=== PATIENT | female | born 1960 ===

== ENCOUNTER 2023-09-19 00:09 | Emergency (ER) | payer OTHER ==
--- OUTSIDE RECORDS SUMMARY | 2023-09-19 00:13 | XMS REPORT | Continuity of Care Document ---
Author Name Unknown Address [address] [facility] [address] [place], [place] [id number] [place] [address] [facility] Address [address] [facility] [address] [place] [address] Care Team Providers Care Industrial Designer Name Role Phone PCP, PATIENT DOES NOT HAVE A Primary Care Physic thea Unavailable FRANCESCO AMADO Attending Clinician Unavailable SADIE CHAIDEZ Attending Clinician Unavailable MYRA DESOUZA Attending Clinician Unavailable DANIEL PARSONS Attending Clinician Unavailable PEGGY MENDEZ Attending Clinician Unavailable LAVELL LUU Attending Clinician Unavailable LO MORGAN Attending Clinician Unavailable HELEN DUGAN Attending Clinician Unava ilable ELLEN WARD Attending Clinician UnavailLAURA Shea I Attending Clinician Unavailable BARBARA NEWTON Attending Clinician UnavailEDDIE Geronimo Attending Clinician Unav ailable VANE GUAJARDO Attending Clinician Unavailable EUGENIO COSTELLO Attending Clinician Unavailable CARLOS AL Attending Clinician Unavailable GWEN SONG Attending Clinician Unavailable FRANCESCO AMADO Admitting Clinician Unavailable BARBARA NEWTON Admitting Clinician UnavailGWEN Patricio Admitting Clinician Unavailable Payers Payer Name Policy Type Policy Number Effective Date Expirati on Date Source MEDICARE PART A AND B [id number] 2008 00:00:00 MEDICAID [place] [employer] [facility] [id number] 2014 00:00:00 MEDICARE PART A \T\ B [id number] 2008 00:00:00 MEDICAID OF [place] [id number] 2018 00:00:00 Allergies, Adverse Reactions, Alerts Allergy Name Allergy Type Status Severity Reaction(s) Onset Date Inactive Date Treating Clinician Comments Source NO KNOWN ALLERGIE S Drug Class Active [facility] Vital Signs Vital Name Observation Time Observation Value Comments S lukaszce WEIGHT 2020-10-20 08:10:26 54.4 kg Encounters Start Date/Time End Date/Time Encounter Type Admission Type Attending [facility] Facility Care Department Encounter ID Source 2020-04-18 17:29:17 Outpatient FRANCESCO AMADO MICHELLE Surgical Onc [id number] MD [facility] 2020-04-04 16:08:54 Outpatient SADIE CHAIDEZ MDA MDA [id number] MD [facility] 2023-07-24 16:20:23 2023-07-24 23:59:00 Outpatient EL MYRA DESOUZA MDA MDA [id number] MD [facility] 2023-04-22 16:07:31 2023-04-22 23:59:00 Outpatient EL DANIEL PARSONS MDA MDA [id number] MD [facility] 2023-03-27 13:45:00 2023-03-27 23:59:00 Outpatient EL PEGGY MENDEZ MDA MDA [id number] MD [facility] 2023-01-21 14:44:54 2023-01-21 23:59:00 Outpatient EL DANIEL PARSONS MDA MDA [id number] MD [facility] 2022-11-19 06:27:55 2022-11-19 06:27:55 Outpatient PEGGY CONTRERAS MDA MDA [id number] MD [facility] 2022-11-14 11:37:40 2022-11-14 11:59:34 Outpatient EL LAVELL LUU MDA MDA [id number] MD [facility] 2022-11-01 10:21:27 2022-11-01 11:17:21 Outpatient EL LO MORGAN MDA MDA [id number] MD [facility] 2022-11-01 09:59:26 2022-11-01 09:59:26 Outpatient EL LO MORGAN MDA MDA [id number] MD [facility] 2022-10-23 09:59:20 2022-10-23 23:59:00 Outpatient EL DANIEL PARSONS MDA MDA [id number] MD [facility] 2022-07-23 14:57:15 2022-07-23 23:59:00 Outpatient EL DANIEL PARSONS MDA MDA [id number] MD [facility] 2022-05-23 13:00:00 2022-05-23 23:59:00 Outpatient EL LYLY MYRA MDA MDA [id number] MD [facility] 2022-04-11 10:36:57 2022-04-11 10:59:51 Outpatient EL LAVELL LUU MDA MDA [id number] MD [facility] 2022-01-12 23:59:00 2022-01-12 23:59:00 Outpatient EL LYLY MYRA MDA MDA [id number] MD [facility] 2021-11-21 12:56:11 2021-11-21 23:59:00 Outpatient EL MYRA DESOUZA MDA MDA [id number] MD [facility] 2021-09-12 10:08:41 2021-09-12 23:59:00 Outpatient EL LAVELL LUU MDA MDA [id number] MD [facility] 2021-09-12 09:02:50 2021-09-12 09:56:38 Outpatient EL HELEN DUGAN MDA MDA [id number] MD [facility] 2021-09-12 08:12:12 2021-09-12 08:12:12 Outpatient EL LO MORGAN MDA MDA [id number] MD [facility] 2021-09-10 11:39:30 2021-09-10 11:52:45 Outpatient LAVELL DELEON MDA MDA [id number] MD [facility] 2021-06-14 23:59:00 2021-06-14 23:59:00 Outpatient EL MYRA DESOUZA MDA MDA [id number] MD [facility] 2021-05-11 12:45:59 2021-05-11 23:59:00 Outpatient LAVELL DELEON MDA MDA [id number] MD [facility] 2021-05-10 10:29:13 2021-05-10 10:37:48 Outpatient EL ELLEN WARD MDA MDA [id number] MD [facility] 2021-04-25 08:59:41 2021-04-25 08:59:41 Outpatient EL LAURA LAW MDA MDA [id number] MD [facility] 2021-04-11 00:00:00 2021-04-11 00:00:00 Outpatient EL HELEN DUGAN MDA MDA [id number] MD [facility] 2021 07:38:59 2021 23:59:00 Outpatient MYRA PORTER MDA MDA [id number] MD [facility] 2020-12-12 07:40:33 2020-12-12 23:59:00 Outpatient MYRA PORTER MDA MDA [id number] MD [facility] 2020-12-09 10:40:00 2020-12-09 11:35:00 Outpatient EL BARBARA NEWTON MDA Hunter/Hep/Nu t [id number] MD [facility] 2020-12-08 23:59:00 2020-12-08 23:59:00 Outpatient MYRA PORTER MDA MDA [id number] MD [facility] 2020-12-05 23:59:00 2020-12-05 23:59:00 Outpatient MYRA PORTER MDA MDA [id number] MD [facility] 2020-11-03 12:36:59 2020-11-03 12:37:08 Outpatient EDDIE YEE MDA MDA [id number] MD [facility] 2020-10-25 14:04:20 2020-10-25 14:04:20 Outpatient VANE FARR MDA MDA [id number] MD [facility] 2020-10-25 14:04:11 2020-10-25 14:04:11 Outpatient EL HELEN DUGAN MDA MDA [id number] MD [facility] 2020-10-21 05:32:00 2020-10-21 09:40:00 Outpatient EL FRANCESCO AMADO MDA Surgical Onc [id number] MD [facility] 2020-10-21 07:11:29 2020-10-21 07:11:29 Outpatient EL MDA MDA [id number] MD [facility] 2020-10-21 06:51:37 2020-10-21 06:51:37 Outpatient FRANCESCO AMADO MDA MDA [id number] MD [facility] 2020-10-20 11:06:19 2020-10-20 23:59:00 Outpatient EUGENIO NAVAS MDA MDA [id number] MD [facility] 2020-10-20 09:15:00 2020-10-20 11:05:00 Outpatient CARLOS BRICE MDA MDA [id number] MD [facility] 2020-10-20 09:40:17 2020-10-20 10:56:17 Outpatient CARLOS BRICE MDA MDA [id number] MD [facility] 2020-10-20 07:53:24 2020-10-20 09:14:00 Outpatient LUPILLO HELEN DUGAN MDA MDA [id number] MD [facility] 2020-10-20 07:14:53 2020-10-20 08:15:14 Outpatient CARLOS BRICE MDA MDA [id number] MD [facility] 2020-10-20 07:18:02 2020-10-20 07:18:02 Outpatient CARLOS BRICE MDA MDA [id number] MD [facility] 2020-07-08 00:00:00 2020-07-08 00:00:00 Outpatient CARLOS BRICE MDA MDA [id number] MD [facility] 2020-07-08 00:00:00 2020-07-08 00:00:00 Outpatient CARLOS BRICE MDA MDA [id number] MD [facility] 2020-07-08 00:00:00 2020-07-08 00:00:00 Outpatient CARLOS BRICE MDA MDA [id number] MD [facility] 2020-07-08 00:00:00 2020-07-08 00:00:00 Outpatient LUPILLO HELEN DUGAN MDA MDA [id number] MD [facility] 2020-06-23 00:00:00 2020-06-23 00:00:00 Outpatient LUPILLO LAVELL LUU MDA MDA [id number] MD [facility] 2020-06-07 10:00:00 2020-06-07 23:59:00 Outpatient LUPILLO MYRA DESOUZA MDA MDA [id number] MD [facility] 2020-05-12 09:05:32 2020-05-12 23:59:00 Outpatient HELEN BOWLES MDA MDA [id number] MD [facility] 2020-04-05 09:56:36 2020-04-05 09:56:36 Outpatient HELEN BOWLES [facility] [id number] MD [facility] richter 2019-09-15 17:00:45 2019-09-15 18:29:00 Emergency X GWEN SONG [facility] [id number] [facility]
[2023-09-19] MEDS ORDERED: ALBUTEROL 2.5 MG/3 ML NEB SOL ONE (00:40)
[2023-09-19] MEDS ORDERED: ONDANSETRON 4 MG/2 ML VIAL ONE (00:49)
[2023-09-19] MEDS ORDERED: KETOROLAC 30 MG/ML INJ ONE (00:49)
[2023-09-19] MEDS ORDERED: MORPHINE 4 MG/ML SYR ONE (00:49)
[2023-09-19] MEDS ORDERED: AZITHROMYCIN 500 MG INJ IVPB ONE (01:06)
[2023-09-19] MEDS ORDERED: CEFTRIAXONE 1000 MG/VIAL ONE (01:06)
[2023-09-19] MEDS ORDERED: NA CHLORIDE 0.9% 250 ML ONE ×2 (01:06→02:05)
[2023-09-19] MEDS ORDERED: NA CHLORIDE 0.9% 50 ML ONE ×2 (01:06→03:59)
[2023-09-19] MEDS ORDERED: METHYLPREDNISOLONE 125 MG INJ ONE (01:06)
[2023-09-19 01:20] LABS: Protime INR 1.52
[2023-09-19 01:23] LABS: Absolute Lymphocytes (CBC) 0.1 K/uL (0.7-4.9); Hematocrit 35.4 % (36.0-45.0); Lymphocytes % 17.4 % (15.3-44.8); MCV 97.3 fL (80-100); MPV 9.7 fL (7.6-11.3); Platelets 86 thou/uL (152-406); RBC Red Blood Cell Count 3.64 M/uL (3.86-4.86)
[2023-09-19 01:38] LABS: Albumin 2.5 g/dL (3.4-5.0); Bilirubin Direct 0.6 mg/dL (0-0.2); Bilirubin Indirect, Calculated 0.1 mg/dL (0.2-0.8); Bilirubin Total 0.7 mg/dL (0.2-1.0); Magnesium 2.1 mg/dL (1.6-2.4); Potassium 3.3 mEq/L (3.5-5.1); Troponin High Sensitivity 4.9 pg/mL (<58.9)
[2023-09-19 01:47] LABS: SARS-COV-2 RT PCR NEGATIVE (NEGATIVE)
[2023-09-19 01:55] LABS: Arterial Blood Carboxyhemoglob 0.7 % (0-1.5); Blood Gas Oxyhemoglobin 81.2 % (94-97); Blood O2 Saturation 83.4 % (92-98.5)
[2023-09-19] MEDS ORDERED: VANCOMYCIN 1 GM/VIAL ONE (02:05)
[2023-09-19] MEDS ORDERED: CEFAZOLIN SODIUM 2 GM/VIAL ONE (02:06)
[2023-09-19] MEDS ORDERED: NA CHLORIDE 0.9% 100 ML ONE (02:06)
[2023-09-19] MEDS ORDERED: NS KCL 20MEQ 1,000 ML IV ONE (02:06)
[2023-09-19] MEDS ORDERED: LIDOCAINE 1% 20 ML MDV ONE (03:17)
[2023-09-19 03:18] LABS: Blood Morphology Comment NOT SEEN (NOT SEEN); Platelet Estimate DECR; White Blood Cell Scan OK (OK)
[2023-09-19] MEDS ORDERED: MIDAZOLAM HCL IN 0.9 % NACL/PF 100 MG/100 ML BAG IVPB ONE (03:30)
[2023-09-19] MEDS ORDERED: ETOMIDATE 20 MG/10 ML VIAL IV ONE (03:44)
[2023-09-19] MEDS ORDERED: ROCURONIUM 50 MG/5 ML VIAL IV ONE (03:44)
[2023-09-19] MEDS ORDERED: CEFEPIME 1 GM/VIAL ONE (03:59)
--- NOTE | 2023-09-19 03:59 | EDPHYS ---
Physician Documentation [facility] Name: Ness Fleming Age: 63 yrs Sex: Female : 1960 Arrival Date: 09/19/2023 Time: 00:09 Bed 2 Private MD: ED Physician Horacio Castro HPI: 09/19 00:12 This 63 yrs old Female presents to ER via Unassigned with complaints of Chest sp4 pain, shortness of breath. 02:14 63-year-old female with history of oral, head and neck cancer, history of extensive sp4 resection history of glossectomy, presents with several days of shortness of breath, also fever at home. And cough. Patient has history of gastrostomy tube. Patient also reports history of chemoradiation. Patient at this time is remission. She is patient at [facility]. At home patient's family is known to have influenza. . Historical: - Allergies: 01:13 No Known Allergies; km8 - Home Meds: 01:13 Morphine Oral [Active]; Methadone Oral [Active]; levothyroxine oral [Active]; Nexium km8 Oral [Active]; - PMHx: 01:13 oral cancer; km8 - PSHx: 01:13 facial surgery to remove cancer; feeding tube; km8 - Immunization history:: Client reports receiving the 1st dose of the Covid vaccine, Flu vaccine is not up to date. - Social history:: Smoking status: unknown. - Family history:: not pertinent. ROS: 02:14 Constitutional: Positive for fever, positive chills, positive generalized weakness, sp4 positive shortness of breath, positive chest pains 02:14 All other systems are negative, Exam: 02:14 Constitutional: This is a well developed, well nourished patient who is awake, alert, sp4 ill-appearing female, hypoxemic on arrival, gastrostomy tube in place, appearance of extensive facial oral head and neck surgery secondary to prior cancer. 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 History of glossectomy, patient has difficult time speaking but able to communicate basic words Eyes: Pupils equal round and reactive to light, extra-ocular motions intact. Lids and lashes normal. Conjunctiva and sclera are not injected. Cornea within normal limits. Periorbital areas with no swelling, redness, or edema. ENT: Nares patent. No nasal discharge, no septal abnormalities noted. Tympanic membranes are normal and external auditory canals are clear. Mucous membranes moist. Oropharyngeal exam is difficult secondary to radiotherapy and also extensive dissection including glossectomy. Neck: Trachea midline, no thyromegaly or masses palpated, and no cervical lymphadenopathy. Supple, full range of motion without nuchal rigidity, or vertebral point tenderness. Chest/axilla: Normal chest wall appearance and motion. Nontender with no deformity. No lesions are appreciated. Cardiovascular: Regular rate and rhythm with a normal S1 and S2. No gallops, murmurs, or rubs. Normal PMI, no JVD. No pulse deficits. Respiratory: Lungs have equal breath sounds bilaterally, clear to auscultation and percussion. No rales, rhonchi or wheezes noted. No increased work of breathing, no retractions or nasal flaring. Abdomen/GI: Soft, non-tender, with normal bowel sounds. No distension or tympany. No guarding or rebound. No evidence of tenderness throughout. Left upper quadrant gastrostomy tube. Back: No spinal tenderness. No costovertebral tenderness. Skin: Warm, dry with normal turgor. Normal color with no rashes, no lesions, and no evidence of cellulitis. MS/ Extremity: Pulses equal, no cyanosis. Neurovascular intact. Full, normal range of motion. Neuro: Awake and alert, GCS 15, oriented to person, place, time, and situation. Cranial nerves II-XII grossly intact. Motor strength 5/5 in all extremities. Sensory grossly intact. Psych: Awake, alert, with orientation to person, place and time. Behavior, mood, and affect are within normal limits 02:19 ECG was reviewed by the Attending Physician. EKG time 0028, there is sinus rhythm at sp4 the rate of 96, occasional PVCs, right atrial enlargement, positive LVH, prolonged QT otherwise normal Vital Signs: 00:11 BP 124 / 69; Pulse 100; Resp 26; Temp 97.2(A); Pulse Ox 77% on R/A; Weight 54.43 kg km8 (R); Height 5 ft. 6 in. (R); Pain 10/10; 01:00 BP 126 / 65; Pulse 99; Resp 20; km8 01:30 BP 96 / 59; Pulse 96; Resp 19; Pulse Ox 88% on 4 lpm NC; km8 02:00 BP 100 / 57; Pulse 98; Resp 19; Pulse Ox 92% on 30 lpm NC; km8 02:30 BP 109 / 81; Pulse 92; Resp 18; Pulse Ox 92% on 30 lpm NC; km8 03:00 BP 111 / 66; Pulse 96; Resp 19; Pulse Ox 96% on 30 lpm NC; km8 03:30 BP 88 / 59; Pulse 102; Resp 18; Pulse Ox 96% on 30 lpm NC; km8 03:56 BP 101 / 64; Pulse 106; Resp 14; Pulse Ox 98% ; FiO2 100 %; rv 04:15 BP 94 / 58; Pulse 101; Resp 20; Pulse Ox 100% ; FiO2 100 %; rv 04:30 BP 86 / 60; Pulse 93; Resp 20; Pulse Ox 100% ; FiO2 100 %; rv 04:51 BP 118 / 68; Pulse 91; Resp 20; Temp 98; Pulse Ox 100% ; FiO2 100 %; rv 00:11 Body Mass Index 19.37 (54.43 kg, 167.64 cm) km8 00:11 Pain Scale: Adult km8 [place] Coma Score: 00:11 Eye Response: spontaneous(4). Motor Response: obeys commands(6). Verbal Response: km8 oriented(5). Total: 15. 04:51 Eye Response: none(1). Motor Response: none(1). Verbal Response: none(1). Total: 3. rv Procedures: 03:59 Intubation: Ventilated with 100% NRB prior to procedure. O2 saturation prior to sp4 procedure was 90 %. Intubated Montgomery scope assisted intubated, difficult airway management using S2 pediatric Glyde scope blade with 7.0 mm ETT. was successful on first attempt. Ventilated with Ambu bag. ventilator. Tube secured with ETT jones at center of mouth measured 23 cm at lip. Placement verified by CXR, CO2 detector with (+) color change, auscultating bilateral breath sounds, O2 saturation after procedure was 97 %. Patient tolerated well, Patient has a very difficult airway secondary to prior glossectomy and extensive mandibular and upper neck surgery. Intubation and OG tube was accomplished with assistance of glide scope. Central Line: the site was prepped with in sterile fashion, Chlorhexidine, a triple lumen catheter was inserted, in the right internal jugular vein, in 1 attempts. placement was verified, by CXR, by blood return, Ultrasound assisted central line, the site was dressed with Tegaderm, using sterile technique, the patient tolerated the procedure, well, Right internal jugular triple-lumen CVL was placed with ultrasound guidance without complication. MDM: 00:15 Patient medically screened. sp4 02:14 Differential Diagnosis altered mental status, sepsis, flu. Data reviewed: vital signs, sp4 nurses notes, EMS record, lab test result(s), EKG, radiologic studies, plain films. 02:20 ED course: Chest - CLINICAL HISTORY: 63 years Female, CHEST PAIN COMPARISON: None. sp4 FINDINGS: Single portable AP view of the chest. Normal size of the cardiac silhouette. Bilateral airspace opacities in the mid to lower lung dewitt with denser consolidation at the left lung base. Cannot exclude a left pleural effusion. Question of some cortical loss involving the anterolateral left sixth rib. This can be further assessed with CT. No pneumothorax. IMPRESSION: 1. Bilateral airspace opacities in the mid to lower lung dewitt with denser consolidation at the left lung base. Cannot exclude a left pleural effusion. 2. Question of some cortical loss involving the anterolateral left sixth rib. This can be further evaluated with CT.. 04:48 ED course: chest X ray - COMPARISON: September 19, 2023 12:18 AM FINDINGS: Lungs: Hazy sp4 bibasilar opacification. Prominent interstitial markings which may indicate interstitial edema. Peribronchial thickening. Pleural space: Left hemidiaphragm is obscured which can be seen with left pleural effusion, as well as left lower lobe consolidation or atelectasis. No pneumothorax. Heart: Unremarkable. Mediastinum: Unremarkable. Normal mediastinal contour. Bones/joints: No acute findings. Tubes, lines and devices: Right IJ central venous catheter with tip at the cavoatrial junction. Endotracheal tube with tip 4.2 cm above the ute. Nasogastric tube coursing below the diaphragm and overlying the left upper quadrant. IMPRESSION: 1. Hazy bibasilar opacification. 2. Left hemidiaphragm is obscured which can be seen with left pleural effusion, as well as left lower lobe consolidation or atelectasis. 3. Prominent interstitial markings which may indicate interstitial edema. Peribronchial thickening.. 09/19 00:13 Order name: Basic Metabolic Panel; Complete Time: 01:44 sp4 09/19 00:13 Order name: CBC with Diff; Complete Time: 03:55 sp4 09/19 00:13 Order name: LFT's; Complete Time: 01:44 sp4 09/19 00:13 Order name: Magnesium; Complete Time: 01:44 sp4 09/19 00:13 Order name: NT PRO-BNP; Complete Time: 01:44 sp4 09/19 00:13 Order name: PT-INR; Complete Time: 01:44 sp4 09/19 00:13 Order name: Troponin HS; Complete Time: 01:44 4 09/19 00:14 Order name: COVID-19/FLU A+B; Complete Time: 02:07 4 09/19 00:37 Order name: Blood Culture Adult (2) 4 09/19 01:44 Order name: ABG; Complete Time: 02:48 4 09/19 01:47 Order name: CBC Smear Scan; Complete Time: 03:55 EDMS 09/19 03:55 Order name: ABG; Complete Time: 05:14 sp4 09/19 00:13 Order name: XRAY Chest (1 view) 4 09/19 03:55 Order name: Chest Single View XRAY 4 09/19 00:13 Order name: EKG; Complete Time: 00:14 sp4 09/19 00:13 Order name: Cardiac monitoring; Complete Time: 00:22 sp4 09/19 00:13 Order name: EKG - Nurse/Tech; Complete Time: 00:32 sp4 09/19 00:13 Order name: IV Saline Lock; Complete Time: 00:47 sp4 09/19 00:13 Order name: Labs collected and sent; Complete Time: 01:05 sp4 09/19 00:13 Order name: O2 Per Protocol; Complete Time: 00:22 sp4 09/19 00:13 Order name: O2 Sat Monitoring; Complete Time: 00:22 4 09/19 02:58 Order name: Central Line Kit; Complete Time: 03:38 lg3 09/19 02:58 Order name: Hagen; Complete Time: 03:37 3 09/19 02:59 Order name: Intubation Setup; Complete Time: 03:37 sp4 EC:19 Rate is 96 beats/min. Rhythm is regular, Normal Sinus Rhythm with Multifocal PVCs. QRS sp4 [place] is Normal. NH interval is normal. QRS interval is normal. QT interval is prolonged. No Q waves. T waves are Normal. No ST changes noted. Clinical impression: No evidence of ischemia. Interpreted by me. Reviewed by me. Administered Medications: 00:46 Drug: morphine IVP or IV 4 mg IVP once over 4 mins Route: IVP; Infused Over: 4 mins; km8 Site: left forearm; :25 Follow up: Response: No adverse reaction 00:46 Drug: Ondansetron IVP 4 mg IVP once; over 2 minutes Route: IVP; Site: left forearm; km8 :25 Follow up: Response: No adverse reaction 00:46 Drug: Ketorolac IVP 30 mg IVP once Route: IVP; Site: left forearm; km8 :25 Follow up: Response: No adverse reaction 00:47 Drug: Albuterol Inhalation 2.5 mg Inhalation once Route: Inhalation; :25 Follow up: Response: No adverse reaction 8 00:48 CANCELLED (not available ): tamiflususpension 75 mg PO once; Give via Gastrostomy 8 01:05 Drug: MethylPrednisoLONE IVP 125 mg IVP once Route: IVP; Site: left forearm; km8 01:25 Follow up: Response: No adverse reaction 8 01:05 Drug: Rocephin - Rocephin (cefTRIAXone) IVPB 1 grams IVPB once over 30 mins; (mix in 50 km8 mL NS) Route: IVPB; Infused Over: 30 mins; Site: right antecubital; 01:40 Follow up: IV Status: Completed infusion; IV Intake: 50ml km8 01:05 Drug: Zithromax IVPB 500 mg IVPB once over 1 hrs; mix in 250 mL NS Route: IVPB; Infused km8 Over: 1 hrs; Site: left forearm; 02:10 Follow up: IV Status: Completed infusion; IV Intake: 250ml km8 02:09 Drug: ceFAZolin IVPB 2 grams IVPB once over 30 mins; (mix in 100 mL NS) Route: IVPB; km8 Infused Over: 30 mins; Site: left forearm; 02:40 Follow up: IV Status: Completed infusion; IV Intake: 100ml 8 02:09 Drug: vancoMYCIN IVPB 1 grams IVPB once over 2 hrs Route: IVPB; Infused Over: 2 hrs; 8 Site: right hand; 04:54 Follow up: IV Status: Completed infusion; IV Intake: 250ml rv 03:14 Drug: Etomidate IVP 20 mg IVP once {Note: ADMINISTERED BY DR CASTRO.} Route: IVP; rv Site: right antecubital; 03:44 Follow up: Response: No adverse reaction km8 03:15 Drug: Rocuronium IVP 100 mg IVP once {Note: ADMINISTERED BY DR CASTRO.} Route: IVP; rv Site: right antecubital; 03:44 Follow up: Response: No adverse reaction km8 03:37 Drug: Midazolam IVP or IV 0.01 mg/kg/h IV at calculated rate See Administration rv Instructions; (Standard concentration: 100 mg / 100 mL NS); Recommended max rate 0.1 mg/kg/hr; Titrate 0.01 mg/kg/hr as often as every 30 minutes to achieve goal (see titration policy); Goal parameter RASS 0 to -2 {Note: 2MG/HR.} Route: IV; Rate: calculated rate; Site: left forearm; 04:53 Follow up: IV Status: Infusion continued upon transfer rv 03:50 Drug: Cefepime IVPB 2 grams IVPB at 200 ml/hr once over 30 mins; (mix in NS 100 mL) rv Route: IVPB; Rate: 200 ml/hr; Infused Over: 30 mins; Site: right antecubital; 04:54 Follow up: IV Status: Completed infusion; IV Intake: 100ml rv 04:42 Drug: Norepinephrine IV 0.1 mcg/kg/min IV at calculated rate See Administration rv Instructions; (Standard concentration 4 mg / 250 mL D5W); Recommended max rate 3 mcg/kg/min; Titrate 0.05 mcg/kg/min as often as every 5 minutes to achieve goal (see titration policy); Goal parameter MAP greater than 65 mmHg. Route: IV; Rate: calculated rate; Site: right jugular; 04:53 Follow up: IV Status: Infusion continued upon transfer rv 04:54 Drug: NS 0.9% with KCl IV 20 mEq/L 1000 ml IV at 100 ml/hr continuous Route: IV; Rate: rv 100 ml/hr; Site: right antecubital; 04:54 Follow up: IV Status: Infusion continued upon transfer rv Disposition Summary: 09/19/23 03:59 Transfer Ordered Notes: Transfer Location: Other Acute Care Facility sp4 Reason: Higher level of care sp4 Condition: Serious sp4 Problem: new sp4 Symptoms: have improved sp4 Accepting Physician: [facility] attending Intensi(09/19/23 05:15) rv Diagnosis - Acute respiratory failure with hypoxia sp4 - Repeating fever, influenza A, bilateral pneumonia, neutropenia, difficult airway sp4 Discharge Instructions: - Discharge Summary Sheet [id number] Forms: - Medication Reconciliation Form sp4 - SBAR form jr12 Signatures: Dispatcher [employer] EDLenin Narvaez RN RN rv Aimee Herron RN RN lg3 Horacio Castro MD MD sp4 Mamie Zuniga RN RN km8 Corrections: (The following items were deleted from the chart) 00:48 00:15 Tamiflu PO Suspension 75 mg PO once; Give via Gastrostomy ordered. sp4 km8 05:15 03:59 [facility] attending Intensi sp4 rv
--- NOTE | 2023-09-19 03:59 | ER ---
Nurse's Notes [facility] Name: Ness Fleming Age: 63 yrs Sex: Female : 1960 Arrival Date: 09/19/2023 Time: 00:09 Bed 2 Private MD: Diagnosis: Acute respiratory failure with hypoxia;Repeating fever, influenza A, bilateral pneumonia, neutropenia, difficult airway Presentation: 09/19 00:11 Chief complaint: EMS states: CP and SOB starting yesterday and BURKETT just 10 mins DENT REMOVER; km8 pt's family has flu. Coronavirus screen: Client denies travel out of the [place] in the last 14 days. Ebola Screen: No symptoms or risks identified at this time. Initial Sepsis Screen: Does the patient meet any 2 criteria? RR > 20 per min. HR > 90 bpm. Yes Does the patient have a suspected source of infection? No. Patient's initial sepsis screen is negative. Risk Assessment: Do you want to hurt yourself or someone else? Patient reports no desire to harm self or others. Onset of symptoms was September 16, 2023. 00:11 Method Of Arrival: EMS: [facility] km8 00:11 Acuity: ROBERTO 2 km8 Triage Assessment: 00:11 General: Appears in no apparent distress. uncomfortable, Behavior is calm, cooperative, km8 appropriate for age. Pain: Complains of pain in chest and head Pain currently is 10 out of 10 on a pain scale. EENT: no lower jaw and partial tongue. Neuro: Level of Consciousness is awake, alert, obeys commands, Oriented to person, place, time, situation. Cardiovascular: Reports chest pain, shortness of breath, Capillary refill < 3 seconds Patient's skin is warm and dry. Respiratory: Reports shortness of breath Airway is patent Respiratory effort is even, unlabored, Respiratory pattern is regular, symmetrical. GI: Abdomen is flat, PEG tube in place, clamped. Site clean. : No signs and/or symptoms were reported regarding the genitourinary system. Derm: No signs and/or symptoms reported regarding the dermatologic system. Skin is intact, Skin is dry, Skin is normal, Skin temperature is warm. Musculoskeletal: No signs and/or symptoms reported regarding the musculoskeletal system. Range of motion: intact in all extremities. Historical: - Allergies: :13 No Known Allergies; km8 - Home Meds: 01:13 Morphine Oral [Active]; Methadone Oral [Active]; levothyroxine oral [Active]; Nexium km8 Oral [Active]; - PMHx: 01:13 oral cancer; km8 - PSHx: 01:13 facial surgery to remove cancer; feeding tube; km8 - Immunization history:: Client reports receiving the 1st dose of the Covid vaccine, Flu vaccine is not up to date. - Social history:: Smoking status: unknown. - Family history:: not pertinent. Screenin:11 [facility] ED Fall Risk Assessment (Adult) History of falling in the last 3 months, km8 including since admission No falls in past 3 months (0 pts) Confusion or Disorientation No (0 pts) Intoxicated or Sedated No (0 pts) Impaired Gait No (0 pts) Mobility Assist Device Used No (0 pt) Altered Elimination No (0 pt) Score/Fall Risk Level 0 - 2 = Low Risk Oriented to surroundings, Maintained a safe environment, Educated pt \T\ family on fall prevention, incl call for assistance when getting out of bed, Assessed \T\ reinforced patient's understanding of fall precautions. Abuse screen: Denies threats or abuse. Denies injuries from another. Nutritional screening: No deficits noted. Tuberculosis screening: No symptoms or risk factors identified. Assessment: 00:11 Reassessment: see triage notes/assessment. [facility] 01:00 Reassessment: Patient appears in no apparent distress at this time. No changes from [facility] previously documented assessment. Patient and/or family updated on plan of care and expected duration. Pain level reassessed. Patient is alert, oriented x 3, equal unlabored respirations, skin warm/dry/pink. 02:11 Reassessment: RT at bedside to help with O2 therapy; pt placed on high flow O2 via n/c km8 at 30L. 03:00 Reassessment: Patient appears in no apparent distress at this time. Patient and/or [facility] family updated on plan of care and expected duration. Pain level reassessed. Patient is alert, oriented x 3, equal unlabored respirations, skin warm/dry/pink. Respiratory: Airway is patent Respiratory effort is even, unlabored, Respiratory pattern is regular, symmetrical. Vital Signs: 00:11 BP 124 / 69; Pulse 100; Resp 26; Temp 97.2(A); Pulse Ox 77% on R/A; Weight 54.43 kg km8 (R); Height 5 ft. 6 in. (R); Pain 10/10; 01:00 BP 126 / 65; Pulse 99; Resp 20; km8 01:30 BP 96 / 59; Pulse 96; Resp 19; Pulse Ox 88% on 4 lpm NC; km8 02:00 BP 100 / 57; Pulse 98; Resp 19; Pulse Ox 92% on 30 lpm NC; km8 02:30 BP 109 / 81; Pulse 92; Resp 18; Pulse Ox 92% on 30 lpm NC; km8 03:00 BP 111 / 66; Pulse 96; Resp 19; Pulse Ox 96% on 30 lpm NC; km8 03:30 BP 88 / 59; Pulse 102; Resp 18; Pulse Ox 96% on 30 lpm NC; km8 03:56 BP 101 / 64; Pulse 106; Resp 14; Pulse Ox 98% ; FiO2 100 %; rv 04:15 BP 94 / 58; Pulse 101; Resp 20; Pulse Ox 100% ; FiO2 100 %; rv 04:30 BP 86 / 60; Pulse 93; Resp 20; Pulse Ox 100% ; FiO2 100 %; rv 04:51 BP 118 / 68; Pulse 91; Resp 20; Temp 98; Pulse Ox 100% ; FiO2 100 %; rv 00:11 Body Mass Index 19.37 (54.43 kg, 167.64 cm) km8 00:11 Pain Scale: Adult km8 [place] Coma Score: 00:11 Eye Response: spontaneous(4). Motor Response: obeys commands(6). Verbal Response: km8 oriented(5). Total: 15. 04:51 Eye Response: none(1). Motor Response: none(1). Verbal Response: none(1). Total: 3. rv ED Course: 00:11 Patient arrived in ED. km8 00:11 No provider procedures requiring assistance completed. km8 00:11 Arm band placed on right wrist. km8 00:11 Patient has correct armband on for positive identification. Placed in gown. Bed in low km8 position. Call light in reach. Side rails up X2. Client placed on continuous cardiac and pulse oximetry monitoring. NIBP monitoring applied. Door closed. Lights dimmed. Warm blanket given. 00:12 Horacio Castro MD is Attending Physician. sp4 00:15 Triage completed. km8 00:20 Oxygen administration via nasal cannula \T\ 4L/min. km8 00:25 XRAY Chest (1 view) In Process Unspecified. EDMS 00:47 Inserted saline lock: 20 gauge in left forearm, using aseptic technique. km8 02:19 initiated transfer with [facility] transfer center, spoke with Dayanna. jr12 04:10 Chest Single View XRAY In Process Unspecified. EDMS 04:53 Patient transferred, IV remains in place. rv Administered Medications: 00:46 Drug: morphine IVP or IV 4 mg IVP once over 4 mins Route: IVP; Infused Over: 4 mins; km8 Site: left forearm; 01:25 Follow up: Response: No adverse reaction km8 00:46 Drug: Ondansetron IVP 4 mg IVP once; over 2 minutes Route: IVP; Site: left forearm; km8 01:25 Follow up: Response: No adverse reaction km8 00:46 Drug: Ketorolac IVP 30 mg IVP once Route: IVP; Site: left forearm; km8 01:25 Follow up: Response: No adverse reaction km8 00:47 Drug: Albuterol Inhalation 2.5 mg Inhalation once Route: Inhalation; km8 01:25 Follow up: Response: No adverse reaction km8 00:48 CANCELLED (not available ): tamiflususpension 75 mg PO once; Give via Gastrostomy km8 01:05 Drug: MethylPrednisoLONE IVP 125 mg IVP once Route: IVP; Site: left forearm; km8 01:25 Follow up: Response: No adverse reaction km8 01:05 Drug: Rocephin - Rocephin (cefTRIAXone) IVPB 1 grams IVPB once over 30 mins; (mix in 50 km8 mL NS) Route: IVPB; Infused Over: 30 mins; Site: right antecubital; 01:40 Follow up: IV Status: Completed infusion; IV Intake: 50ml km8 01:05 Drug: Zithromax IVPB 500 mg IVPB once over 1 hrs; mix in 250 mL NS Route: IVPB; Infused km8 Over: 1 hrs; Site: left forearm; 02:10 Follow up: IV Status: Completed infusion; IV Intake: 250ml km8 02:09 Drug: ceFAZolin IVPB 2 grams IVPB once over 30 mins; (mix in 100 mL NS) Route: IVPB; km8 Infused Over: 30 mins; Site: left forearm; 02:40 Follow up: IV Status: Completed infusion; IV Intake: 100ml km8 02:09 Drug: vancoMYCIN IVPB 1 grams IVPB once over 2 hrs Route: IVPB; Infused Over: 2 hrs; km8 Site: right hand; 04:54 Follow up: IV Status: Completed infusion; IV Intake: 250ml rv 03:14 Drug: Etomidate IVP 20 mg IVP once {Note: ADMINISTERED BY DR CASTRO.} Route: IVP; rv Site: right antecubital; 03:44 Follow up: Response: No adverse reaction 8 03:15 Drug: Rocuronium IVP 100 mg IVP once {Note: ADMINISTERED BY DR CASTRO.} Route: IVP; rv Site: right antecubital; 03:44 Follow up: Response: No adverse reaction [facility] 03:37 Drug: Midazolam IVP or IV 0.01 mg/kg/h IV at calculated rate See Administration rv Instructions; (Standard concentration: 100 mg / 100 mL NS); Recommended max rate 0.1 mg/kg/hr; Titrate 0.01 mg/kg/hr as often as every 30 minutes to achieve goal (see titration policy); Goal parameter RASS 0 to -2 {Note: 2MG/HR.} Route: IV; Rate: calculated rate; Site: left forearm; 04:53 Follow up: IV Status: Infusion continued upon transfer rv 03:50 Drug: Cefepime IVPB 2 grams IVPB at 200 ml/hr once over 30 mins; (mix in NS 100 mL) rv Route: IVPB; Rate: 200 ml/hr; Infused Over: 30 mins; Site: right antecubital; 04:54 Follow up: IV Status: Completed infusion; IV Intake: 100ml rv 04:42 Drug: Norepinephrine IV 0.1 mcg/kg/min IV at calculated rate See Administration rv Instructions; (Standard concentration 4 mg / 250 mL D5W); Recommended max rate 3 mcg/kg/min; Titrate 0.05 mcg/kg/min as often as every 5 minutes to achieve goal (see titration policy); Goal parameter MAP greater than 65 mmHg. Route: IV; Rate: calculated rate; Site: right jugular; 04:53 Follow up: IV Status: Infusion continued upon transfer rv 04:54 Drug: NS 0.9% with KCl IV 20 mEq/L 1000 ml IV at 100 ml/hr continuous Route: IV; Rate: rv 100 ml/hr; Site: right antecubital; 04:54 Follow up: IV Status: Infusion continued upon transfer rv Medication: 00:11 VIS not applicable for this client. km8 Intake: 01:40 IV: 50ml; Total: 50ml. km8 02:10 IV: 250ml; Total: 300ml. km8 02:40 IV: 100ml; Total: 400ml. km8 04:54 IV: 100ml; Total: 500ml. rv 04:54 IV: 250ml; Total: 750ml. rv Outcome: 03:59 ER care complete, transfer ordered by MD. yeager 04:53 Transferred by ground EMS to [facility], Transfer form completed. rv X-rays sent w/ patient. 04:53 Condition: good 04:53 Instructed on the need for transfer, 05:15 Patient left the ED. rv Signatures: Dispatcher [employer] EDMS Lenin Centeno RN RN Horacio Huff MD MD sp4 Yany Wniter [facility] Mamie Zuniga, BRIAN RN km8 Corrections: (The following items were deleted from the chart) 03:42 02:46 BP 146 / 87; Pulse 69bpm; Resp 22bpm; Pulse Ox 96% 30 lpm Nasal Cannula; [facility] km8 03:42 02:45 BP 136 / 78; Pulse 75bpm; Resp 18bpm; Pulse Ox 96% 30 lpm Nasal Cannula; 8 km8
[2023-09-19 04:14] LABS: Arterial Blood Carboxyhemoglob 0.4 % (0-1.5); Blood Gas Oxyhemoglobin 94.8 % (94-97); Blood O2 Saturation 96.5 % (92-98.5)
[2023-09-19] MEDS ORDERED: NOREPINEPHRINE BITARTRATE/D5W 4 MG/250 ML BAG IV ONE (04:53)
[2023-09-19 08:13] VITALS: BP 118/68; TEMP 98; O2SAT 100
--- NOTE | 2023-09-19 10:44 | RAD REPORT ---
EXAM DESCRIPTION: RAD - Chest Single View - 09/19/2023 4:09 am CLINICAL HISTORY: The patient is 63 years old and is Female; after intubation and CVL TECHNIQUE: Frontal view of the chest. COMPARISON: September 19, 2023 12:18 AM FINDINGS: Lungs: Hazy bibasilar opacification. Prominent interstitial markings which may indicate interstitial edema. Peribronchial thickeni ng. Pleural space: Left hemidiaphragm is obscured which can be seen with left pleural effusion, as we ll as left lower lobe consolidation or atelectasis. No pneumothorax. Heart: Unremarkable. Mediastinum: Unremarkable. Normal mediastinal contour. Bones/joints: No acute findings. Tubes, lines and devices: Right IJ central venous catheter with tip at the cavoatrial junction. Endotracheal tube with tip 4.2 cm above the ute. Nasogastric tube coursing below the diaphragm and overlying the left upper quadrant. IMPRESSION: 1. Hazy bibasilar opacification. 2. Left hemidiaphragm is obscured which can be seen with left pleural effusion, as well as left low er lobe consolidation or atelectasis. 3. Prominent interstitial markings which may indicate interstitial edema. Peribronchial thickening. Electronically signed by: Sushant Crooks MD 09/19/2023 04:18 AM FINANCE MGR Due to temporary technical issues with the PACS/Fluency reporting system, reports are being signed by the in house radiologists without review as a courtesy to insure prompt reporting. The interpreting radiologist is fully responsible for the content of the report.
--- NOTE | 2023-09-19 17:29 | RAD REPORT ---
EXAM DESCRIPTION: RAD - Chest Single View - 09/19/2023 12:23 am CLINICAL HISTORY: 63 years Female, CHEST PAIN COMPARISON: None. FINDINGS: Single portable AP view of the chest. Normal size of the cardiac silhouette. Bilateral air space opacities in the mid to lower lung dewitt with denser consolidation at the left lung base. Bryanna ot exclude a left pleural effusion. Question of some cortical loss involving the anterolateral left s ixth rib. This can be further assessed with CT. No pneumothorax. IMPRESSION: 1. Bilateral airspace opacities in the mid to lower lung dewitt with denser consolidat ion at the left lung base. Cannot exclude a left pleural effusion. 2. Question of some cortical loss involving the anterolateral left sixth rib. This can be further e valuated with CT. Electronically signed by: Bri Maki MD 09/19/2023 12:34 AM ATG ARCHITECT Due to temporary technical issues with the PACS/Fluency reporting system, reports are being signed by the in house radiologists without review as a courtesy to insure prompt reporting. The interpreting radiologist is fully responsible for the content of the report.
--- NOTE | 2023-09-20 15:23 | EKG ---
Test Date: 2023-09-19 Test Time: 00:28:45 Big Machine Consultant: EDDIE MEASUREMENT RESULTS: Intervals: Rate: 96 CT: 126 QRSD: 88 QT: 386 QTc: 487 Entiat: P: 97 CT: 126 QRS: 77 T: 81 INTERPRETIVE STATEMENTS: Sinus rhythm with occasional premature ventricular complexes Right atrial enlargement Minimal voltage criteria for LVH, may be normal variant Nonspecific T wave abnormality Prolonged QT Abnormal ECG Compared to ECG 05/03/2011 13:35:46 Ventricular premature complex(es) now present Atrial abnormality now present Left ventricular hypertrophy now present T-wave abnormality now present Prolonged QT interval now present Electronically Signed On 09-20-23 15:20:14 OVEN LOADER by Kobe Mcconnell
== END 2023-09-19 05:15 ==
LOC: ER 00:09
PROC: 05HM33Z Insertion of Infusion Device into Right Internal Jugular Vein, Percutaneous Approach (ICD-10-PCS; principal; 2023-09-19)
DX: J96.01 Acute respiratory failure with hypoxia (principal); J10.00 Influenza due to other identified influenza virus with unspecified type of pneumonia; D70.9 Neutropenia, unspecified; R50.9 Fever, unspecified; Z11.52 Encounter for screening for COVID-19; Z85.819 Personal history of malignant neoplasm of unspecified site of lip, oral cavity, and pharynx
CPT/HCPCS: 93005; 87040 ×2; 85025; 80048; 36415; 83735; 87205 ×2; 85610; 80076; 87077; 87186; 84484; 83880; 0240U; 71045 ×2; 82805 ×2; 31500; 99285; 94002; 36556; J2250; J2001; J7613; J2930; J2405; J7050 ×2; J0692; J0696; J3480